=== PATIENT | female | born 1995 | race Caucasian/White ===

== ENCOUNTER → 2016-12-05 | Day surgery (SDC) | payer SELFPAY ==
[~2016-12-05] MED LIST: Albuterol/Ipratropium 3.0-0.5 MG/3 ML Neb Soln NEB ONE; Dexamethasone 4 MG/ML SDV ONE; Famotidine 20 MG/2 ML SDV IVPUSH ONE; Glycopyrrolate 0.2 MG/ML SDV ONE; HYDROmorphone 0.5 MG/0.5 ML Syringe IVPUSH PRN; HYDROmorphone 1 MG/ML Syringe ONE; Haloperidol Lactate 5 MG/ML SDV IVPUSH ONE; Hetastarch in NS 500 ML ONE; Lactated Ringers 1,000 ML ONE; Lidocaine 1% 4 ML ONE; Metoclopramide 10 MG/2 ML SDV IVPUSH PRN; Midazolam 1 MG/ML 2 ML SDV ONE; Neostigmine Methylsulfate 10 MG/10 ML MDV ONE; Ondansetron 4 MG/2 ML SDV IVPUSH ONE; Ondansetron 4 MG/2 ML SDV ONE; Phenylephrine 1% 10 MG/ML SDV ONE; Propofol 200 MG/20 ML SDV ONE; Rocuronium 50 MG/5 ML Vial ONE; Sodium Chloride 0.9% 1,000 ML IV ONE; Sodium Chloride 0.9% 1,000 ML IV SCH; Sodium Chloride 0.9% 10 ML Syringe FLUSH PRN; Succinylcholine/Normal Saline 100 MG/5 ML Syringe ONE; diphenhydrAMINE 50 MG/ML SDV IVPUSH ONE; ePHEDrine 50 MG/ML SDV IVPUSH PRN; ePHEDrine 50 MG/ML SDV ONE; fentaNYL 100 MCG/2 ML SDV IVPUSH PRN; fentaNYL 250 MCG/5 ML SDV ONE
--- NOTE | 2016-12-05 13:06 | EDM.PDOC ---
ED HPI GENERAL MEDICAL PROBLEM - General Chief Complaint: WHEEL ASSEMBLER Problem Stated Complaint: TUBAL HERE FOR 2ND OPINION Time Seen by Provider: 12/05/16 12:40 Source of Information: Reports: Patient History Limitations: Reports: No Limitations - History of Present Illness INITIAL COMMENTS - FREE TEXT/NARRATIVE: 21-year-old female presents to the ER for a second opinion and possible ectopic . Patient was seen in the [facility] on 11-22-16 for vaginal bleeding and lower pelvic pain. She was diagnosed with an ectopic . She had an hCG of 759 at that time. She was admitted for observation and treated with methotrexate. She went home the next day. She was supposed to follow up with OB but due to financial concerns is unable to do so. She then presented to the [facility] again last night for pelvic pain, vaginal bleeding, lightheadedness , nausea and malaise. An ultrasound was again done which showed "a left adnexal masslike lesion consistent with the patient's known ectopic which has increased in size compared to 11-22-16. Complex fluid in the pelvis the left adnexa may represent blood products." Patient reports that she was again admitted for observation with a plan for surgery this morning. She states that while she was awaiting surgery her WHEEL ASSEMBLER provider came in and told her that it was a blood clot and she did not need surgery. She was told that she could go home. Review the records from [place] do not show any admission documentation. Last documentation was from the ER last night. Of note her Quant had dropped to 201 last night. Patient presents today for second opinion on the ectopic . She reports that she continues to have lower pelvic pain. Currently she is has a headache, lightheadedness, shakiness, nausea and vaginal bleeding. She reports vaginal bleeding in the form of spotting and states that she is change her pad about 3 times today. She denies any vomiting or syncope. Denies any dysuria. Patient is a . Blood type is A+. Treatments BODY AND FENDER WORKER: Reports: Other (see below) Other Treatments BODY AND FENDER WORKER: was seen in [facility] right lower abdomen Pain Score (Numeric/FACES): 5 - Related Data Allergies Allergy/AdvReac Type Severity Reaction Status Date / Time Penicillins Allergy Cannot Verified 12/05/16 12:18 Remember Home Meds: Home Meds . [No Known Home Meds] 11/22/16 [History] Past Medical History - Past Health History Medical/Surgical History: Denies Medical/Surgical History HEENT History: Reports: None Cardiovascular History: Reports: None Respiratory History: Reports: None Gastrointestinal History: Reports: Irritable Bowel Syndrome Genitourinary History: Reports: Other (See Below) Other Genitourinary History: Hx of miscarriage 3x WHEEL ASSEMBLER History: Reports: Ectopic , Other (See Below) Other OB/BYN History: miscarriage x3 Musculoskeletal History: Reports: None Neurological History: Reports: None Psychiatric History: Reports: Other (See Below) Other Psychiatric History: depression Endocrine/Metabolic History: Reports: None Hematologic History: Reports: None Immunologic History: Reports: None Oncologic (Cancer) History: Reports: Other (See Below) Other Oncologic History: Skin Dermatologic History: Reports: Other (See Below) Other Dermatologic History: skin CA - Infectious Disease History Infectious Disease History: Reports: None - Past Surgical History Head Surgeries/Procedures: Reports: None Cardiovascular Surgical History: Reports: None GI Surgical History: Reports: None Female Surgical History: Reports: None, Other (See Below) Other Female Surgeries/Procedures: possible current tubal , irregular periods Social & Family History - Family History Family Medical History: Noncontributory - Tobacco Use Smoking Status *Q: Never Smoker Second Hand Smoke Exposure: No - Caffeine Use Caffeine Use: Reports: Soda Caffeine Use Comment: 5 sodas/day - Recreational Drug Use Recreational Drug Use: No ED ROS GENERAL - Review of Systems Review Of Systems: See Below Constitutional: Reports: Malaise, Diaphoresis Cardiovascular: Reports: Lightheadedness GI/Abdominal: Reports: Abdominal Pain (lower abdominal/ pelvic pain bilaterally) , Nausea. Denies: Constipation, Diarrhea, Vomiting : Reports: Other. Denies: Dysuria Neurological: Reports: Headache. Denies: Syncope ED EXAM - Physical Exam Exam: See Below Exam Limited By: No Limitations General Appearance: Alert, WD/WN, No Apparent Distress Respiratory/Chest: No Respiratory Distress, Lungs Clear, Normal Breath Sounds Cardiovascular: Normal Peripheral Pulses, Regular Rate, Rhythm, No Murmur GI/Abdominal Exam: Normal Bowel Sounds, Soft, Tender (lower abdominal pain bilateral) Neurological: Alert, Oriented, Normal Cognition Psychiatric: Normal Affect, Normal Mood Skin Exam: Warm, Dry, Normal Color Course - Vital Signs Last Recorded V/S: Last Vital Signs Temp 36.3 C 12/05/16 12:10 Pulse 88 12/05/16 12:10 Resp 18 12/05/16 12:10 BP 125/75 12/05/16 12:10 Pulse Ox 98 12/05/16 12:10 - Orders/Labs/Meds Orders: Active Orders 24 hr Category Date Time Status Patient Status [ADT] Routine ADT 12/05/16 15:57 Active Antiembolic Devices [RC] PER UNIT ROUTINE Care 12/05/16 14:56 Active Cardiac Monitoring [RC] . DIRECTED Care 12/05/16 12:49 Active Peripheral IV Care [RC] . DIRECTED Care 12/05/16 12:49 Active Procedure Site Prep Instruct [RC] PER UNIT ROUTINE Care 12/05/16 17:00 Inactive Urinary Catheter Assessment [RC] ASDIRECTED Care 12/05/16 14:54 Inactive Verify Patient Consent Obtain [RC] PER UNIT ROUTINE Care 12/05/16 14:55 Inactive Vital Signs [RC] PER UNIT ROUTINE Care 12/05/16 14:55 Inactive NPO Now [Nothing per Oral Now Diet] [DIET] Diet 12/05/16 Dinner Active PATIENT RETYPE [BBK] Urgent Lab 12/05/16 12:59 Results TYPE AND SCREEN [BBK] Urgent Lab 12/05/16 12:59 Results Metoclopramide [Reglan] Med 12/05/16 16:23 Active 10 mg IVPUSH ONETIME PRN Sodium Chloride 0.9% [Normal Saline] 1,000 ml Med 12/05/16 14:45 Active IV ASDIRECTED Sodium Chloride 0.9% [Saline Flush] Med 12/05/16 12:49 Active 10 ml FLUSH ASDIRECTED PRN Peripheral IV Insertion Adult [OM.PC] Routine Oth 12/05/16 12:49 Ordered Schedule Procedure [COMM] Urgent Oth 12/05/16 17:00 Ordered Sequential Compression Device [OM.PC] Per Unit Routine Oth 12/05/16 14:56 Ordered Medication Orders Sodium Chloride (Normal Saline) 1,000 mls @ 150 mls/hr IV ASDIRECTED JUAN Last Admin: 12/05/16 14:42 Dose: 150 mls/hr Metoclopramide HCl (Reglan) 10 mg IVPUSH ONETIME PRN PRN Reason: Nausea/Vomiting Sodium Chloride (Saline Flush) 10 ml FLUSH ASDIRECTED PRN PRN Reason: Keep Vein Open Last Admin: 12/05/16 13:05 Dose: 10 ml Labs: Laboratory Tests 12/05/16 12/05/16 12/05/16 Range/Units 12:55 12:59 12:59 WBC 13.68 H (3.98-10.04) K/mm3 RBC 4.29 (3.98-5.22) M/mm3 Hgb 12.6 (11.2-15.7) gm/L Hct 38.1 (34.1-44.9) % MCV 88.8 (79.4-94.8) fl MCH 29.4 (25.6-32.2) pg MCHC 33.1 (32.2-35.5) g/dl RDW Std Deviation 42.6 (36.4-46.3) fL Plt Count 309 (182-369) K/mm3 MPV 9.8 (9.4-12.3) fl Neutrophils % (Manual) 85 H (40-60) % Band Neutrophils % 0 (0-10) % Lymphocytes % (Manual) 10 L (20-40) % Atypical Lymphs % 0 % Monocytes % (Manual) 5 (2-10) % Eosinophils % (Manual) 0 L (0.7-5.8) % Basophils % (Manual) 0 L (0.1-1.2) Platelet Estimate Adequate Plt Morphology Comment Normal RBC Morph Comment Normal Sodium 139 (136-145) mEq/L Potassium 3.9 (3.5-5.1) mEq/L Chloride 103 (98-107) mEq/L Carbon Dioxide 26 (21-32) mEq/L Anion Gap 13.9 (5-15) BUN 6 L (7-18) mg/dL Creatinine 0.8 (0.55-1.02) mg/dL Est Cr Clr Drug Dosing TNP Estimated GFR (MDRD) > 60 (>60) mL/min BUN/Creatinine Ratio 7.5 L (14-18) Glucose 123 H (74-106) mg/dL Calcium 9.4 (8.5-10.1) mg/dL Total Bilirubin 0.4 (0.2-1.0) mg/dL AST 15 (15-37) U/L ALT 25 (14-59) U/L Alkaline Phosphatase 111 (46-116) U/L Total Protein 8.4 H (6.4-8.2) g/dl Albumin 3.8 (3.4-5.0) g/dl Globulin 4.6 gm/dL Albumin/Globulin Ratio 0.8 L (1-2) HCG, Quant 87.0 mIU/mL Urine Color Yellow (Yellow) Urine Appearance Clear (Clear) Urine pH 7.0 (5.0-8.0) Ur Specific [place] 1.020 (1.005-1.030) Urine Protein Trace H (Negative) Urine Glucose (UA) Negative (Negative) Urine Ketones Negative (Negative) Urine Occult Blood 3+ H (Negative) Urine Nitrite Negative (Negative) Urine Bilirubin Negative (Negative) Urine Urobilinogen 1.0 (0.2-1.0) Ur Leukocyte Esterase Negative (Negative) Urine RBC 5-10 H (0-5) /hpf Urine WBC 0-5 (0-5) /hpf Ur Epithelial Cells 10-20 H (0-5) /hpf Urine Bacteria Moderate H (FEW) /hpf Urine Mucus Few (FEW) /hpf Blood Type Gel Antibody Screen 12/05/16 Range/Units 12:59 WBC (3.98-10.04) K/mm3 RBC (3.98-5.22) M/mm3 Hgb (11.2-15.7) gm/L Hct (34.1-44.9) % MCV (79.4-94.8) fl MCH (25.6-32.2) pg MCHC (32.2-35.5) g/dl RDW Std Deviation (36.4-46.3) fL Plt Count (182-369) K/mm3 MPV (9.4-12.3) fl Neutrophils % (Manual) (40-60) % Band Neutrophils % (0-10) % Lymphocytes % (Manual) (20-40) % Atypical Lymphs % % Monocytes % (Manual) (2-10) % Eosinophils % (Manual) (0.7-5.8) % Basophils % (Manual) (0.1-1.2) Platelet Estimate Plt Morphology Comment RBC Morph Comment Sodium (136-145) mEq/L Potassium (3.5-5.1) mEq/L Chloride (98-107) mEq/L Carbon Dioxide (21-32) mEq/L Anion Gap (5-15) BUN (7-18) mg/dL Creatinine (0.55-1.02) mg/dL Est Cr Clr Drug Dosing Estimated GFR (MDRD) (>60) mL/min BUN/Creatinine Ratio (14-18) Glucose (74-106) mg/dL Calcium (8.5-10.1) mg/dL Total Bilirubin (0.2-1.0) mg/dL AST (15-37) U/L ALT (14-59) U/L Alkaline Phosphatase (46-116) U/L Total Protein (6.4-8.2) g/dl Albumin (3.4-5.0) g/dl Globulin gm/dL Albumin/Globulin Ratio (1-2) HCG, Quant mIU/mL Urine Color (Yellow) Urine Appearance (Clear) Urine pH (5.0-8.0) Ur Specific [place] (1.005-1.030) Urine Protein (Negative) Urine Glucose (UA) (Negative) Urine Ketones (Negative) Urine Occult Blood (Negative) Urine Nitrite (Negative) Urine Bilirubin (Negative) Urine Urobilinogen (0.2-1.0) Ur Leukocyte Esterase (Negative) Urine RBC (0-5) /hpf Urine WBC (0-5) /hpf Ur Epithelial Cells (0-5) /hpf Urine Bacteria (FEW) /hpf Urine Mucus (FEW) /hpf Blood Type A POSITIVE Gel Antibody Screen Negative Meds: Medications Generic Name Dose Route Start Last Admin Trade Name Freq PRN Reason Stop Dose Admin Sodium Chloride 1,000 mls @ 150 mls/hr 12/05/16 14:45 12/05/16 14:42 Normal Saline IV 150 mls/hr ASDIRECTED JUAN Administration Metoclopramide HCl 10 mg 12/05/16 16:23 Reglan IVPUSH ONETIME PRN Nausea/Vomiting Sodium Chloride 10 ml 12/05/16 12:49 12/05/16 13:05 Saline Flush FLUSH 10 ml ASDIRECTED PRN Administration Keep Vein Open Discontinued Medications Generic Name Dose Route Start Last Admin Trade Name Freq PRN Reason Stop Dose Admin Bupivacaine HCl Confirm 12/05/16 15:54 Marcaine 0.5% Administered 12/05/16 15:55 Dose 30 ml .ROUTE .STK-MED ONE Dexamethasone Confirm 12/05/16 16:34 Dexamethasone Administered 12/05/16 16:35 Dose 8 mg .ROUTE .STK-MED ONE Diphenhydramine HCl 25 mg 12/05/16 12:49 12/05/16 13:08 Benadryl IVPUSH 12/05/16 12:50 25 mg ONETIME ONE Administration Famotidine 20 mg 12/05/16 16:24 Pepcid IVPUSH 12/05/16 16:25 ONETIME ONE Fentanyl Confirm 12/05/16 16:35 Sublimaze Administered 12/05/16 16:36 Dose 250 mcg .ROUTE .STK-MED ONE Sodium Chloride 1,000 mls @ 999 mls/hr 12/05/16 12:49 12/05/16 13:00 Normal Saline IV 12/05/16 13:49 999 mls/hr ONETIME ONE Administration Lidocaine HCl Confirm 12/05/16 16:34 Xylocaine-Mpf 1% Administered 12/05/16 16:35 Dose 4 mls @ as directed .ROUTE .STK-MED ONE Midazolam HCl Confirm 12/05/16 16:35 Versed 1 Mg/Ml Administered 12/05/16 16:36 Dose 2 mg .ROUTE .STK-MED ONE Ondansetron HCl 4 mg 12/05/16 12:49 12/05/16 13:03 Zofran IVPUSH 12/05/16 12:50 4 mg ONETIME ONE Administration Ondansetron HCl Confirm 12/05/16 16:34 Zofran Administered 12/05/16 16:35 Dose 4 mg .ROUTE .STK-MED ONE Propofol Confirm 12/05/16 16:35 Diprivan 20 Ml Administered 12/05/16 16:36 Dose 400 mg .ROUTE .STK-MED ONE Rocuronium Cochrane Confirm 12/05/16 16:34 Zemuron Administered 12/05/16 16:35 Dose 50 mg .ROUTE .STK-MED ONE Succinylcholine Chloride Confirm 12/05/16 16:34 Succinylcholine In Ns Pf Administered 12/05/16 16:35 Dose 100 mg .ROUTE .STK-MED ONE - Re-Assessments/Exams Free Text/Narrative Re-Assessment/Exam: 12/05/16 13:00 Case discussed with , OB simulation developer. He will discuss this case with his partners. He will likely come and see the patient in the ER. They may plan on surgery tomorrow. 12/05/16 14:50 Dr. Woodall, OB has come and seen the patient in the ER. Plan will be to take her to the OR for a laparoscopy with a possible salpingostomy. Plan to go to the OR around 1600 today. Departure - Departure Time of Disposition: 16:45 Disposition: Refer to Observation Condition: Fair Clinical Impression: Ectopic - Discharge Information - My Orders Last 24 Hours: My Active Orders 12/05/16 12:49 Cardiac Monitoring [RC] . DIRECTED Peripheral IV Care [RC] . DIRECTED Sodium Chloride 0.9% [Saline Flush] 10 ml FLUSH ASDIRECTED PRN Peripheral IV Insertion Adult [OM.PC] Routine 12/05/16 14:45 Sodium Chloride 0.9% [Normal Saline] 1,000 ml IV ASDIRECTED 12/05/16 Dinner NPO Now [Nothing per Oral Now Diet] [DIET] - Assessment/Plan Last 24 Hours: My Active Orders 12/05/16 12:49 Cardiac Monitoring [RC] . DIRECTED Peripheral IV Care [RC] . DIRECTED Sodium Chloride 0.9% [Saline Flush] 10 ml FLUSH ASDIRECTED PRN Peripheral IV Insertion Adult [OM.PC] Routine 12/05/16 14:45 Sodium Chloride 0.9% [Normal Saline] 1,000 ml IV ASDIRECTED 12/05/16 Dinner NPO Now [Nothing per Oral Now Diet] [DIET]
--- NOTE | 2016-12-05 15:23 | PCM.SN ---
- Free Text/Narrative Note: H&P Chief complaint: Ectopic with possible rupture HPI: Reva is a 21-year-old female at unknown gestational age with known ectopic . Patient was seen in the emergency department in [place] on 11/22/16 and found to have a suspected ectopic with hCG Quant of 700. She was treated with methotrexate at that time. She had presented for abdominal pain and had an ultrasound that showed a right-sided adnexal mass. She re-presented to the [place] emergency department last night on 12/05/16 for increasing abdominal pain and vaginal bleeding. She had an ultrasound done that again showed an adnexal mass but on the left side this time and had increased in size since the previous ultrasound. There was also noted to be free fluid in the cul-de-sac. Her hCG Quant had dropped to 200. She reports that she was scheduled to have surgery this morning but for an unknown reason the surgery was canceled. The patient then traveled to [place] and presented to the emergency department here for a second opinion. She reports that she has continued to have abdominal pain that has ranged from 5 out of 10 currently up to 9 or 10 out of 10. She reports it is in her lower abdomen more on the left side. Describes the pain as a burning sensation. Reports that she has had some chills and fevers. Denies any nausea or vomiting. Reports that she had a near syncopal event when she had her IV placed in [place]. She has not had any near syncopal events since that time. She has been urinating without difficulty. Denies any problems with having bowel movements. She is uncertain of her last menstrual cycle as she reports her LMP as some time in December 2015. She has only had several menstrual cycle since delivery of her son in 2014. She reports that she has had increased vaginal bleeding today that is slightly heavier than a normal menstrual cycle for her. She reports that there is small dark red clots with the bleeding. Past medical history: Reports irritable bowel syndrome, history of recurrent 3, history of skin cancer on her chest, known ectopic currently Past medical history: Skin cancer excision from chest with no further workup needed OB history: , 1 in 2014, uncomplicated , first 3 pregnancies ended as early miscarriages PATTERN DRAFTER history: Unsure of LMP with last known LMP in December 2015, oligomenorrhea with only 2 or 3 menstrual cycles since the delivery of her son in 2015 Social history: Denies any significant alcohol use, denies tobacco or drug use. Review of systems: As per history of present illness Objective T 36.3 Celsius, P 88, RR 18, BP 125/75 Gen.: No acute distress, alert and oriented Lungs: Clear to auscultation bilaterally Heart: Regular rate and rhythm Abdomen: soft, mild tenderness in left lower quadrant and suprapubic area, no guarding or rebound, nondistended, positive bowel sounds in all 4 quadrants Extremities: Moving all external is without difficulty, no edema appreciated Transvaginal ultrasound performed at [facility] (12/05/16) Findings: Uterus: 9.3 x 4.7 x 5.4 cm. Normal echotexture of the myometrium. No masses Endometrium: No sign of an endometrial mass or fluid Right ovary: 0.5 x 2.2 x 2.9 cm. No ovarian or adnexal masses stable complex cyst of the right ovary. Normal arterial and venous blood flow. Left ovary: 4.1 x 2.8 x 3.1 second meters. Complex left adnexa consistent with patient with known ectopic , increase in side compared to 11/22/16. Normal arterial and venous blood flow. Cul-de-sac: Complex fluid in the cul-de-sac and left adnexa may represent blood products. Impression: Left adnexal mass like lesion consistent with patient's known ectopic which has increased in size compared to 11/22/16. Complex fluid in the pelvis of the left adnexa may represent blood products. CBC: WBC 13.7, hemoglobin 12.6, hematocrit 38.1, platelets 309 CMP: Sodium 139, potassium 3.9, chloride 103, CO2 26, BUS and 6, creatinine 0.8 , glucose 123, AST 15, ALT 25, alkaline phosphatase 111 HC Blood type: A positive Antibody screen negative Assessment/plan: 21-year-old G [id number] at unknown gestational age with a known ectopic , possible rupture based on free fluid in the pelvis 1. Ectopic - patient was counseled on her options including well continued watchful waiting, methotrexate or surgical management. Patient desires surgical management. She last ate at approximately 11:00. Case was discussed with the TECHNICAL AGRONOMIST who desired to wait 6 hours if possible before performing surgery. The patient is currently an urgent surgical case but could quickly turned to an emergent case and the OR is aware of this. Patient is scheduled for laparoscopy with possible salpingectomy of affected side. Discussed risks and benefits of surgery including bleeding, infection, injury to surrounding organs, and decreased fertility in the future. 2. Nothing by mouth 3. IV fluids at 125 mL/h 4. Type and screen for possible blood product need with possible ectopic rupture neckline 5. Plan to keep patient for observation overnight as she lives in [place] Casey Woodall MD 3:23 PM 12/05/16
[2016-12-05] MEDS: Bupivacaine 0.5% 30 ML SDV ONE ×2 (17:24→17:31)
--- NOTE | 2016-12-05 18:00 | PCM.PREANE ---
Preanesthetic Assessment - Anesthesia/Transfusion/Family Hx Anesthesia History: Prior Anesthesia Without Reaction Family History of Anesthesia Reaction: No Transfusion History: No Prior Transfusion(s) Intubation History: Unknown - Review of Systems General: No Symptoms Pulmonary: No Symptoms Cardiovascular: No Symptoms Gastrointestinal: Abdominal Pain Neurological: No Symptoms Other: Reports: None - Physical Assessment NPO Status Date: 12/05/16 NPO Status Time: 11:30 O2 Sat by Pulse Oximetry: 98 Respiratory Rate: 18 Vital Signs: Last Vital Signs Temp 36.3 C 12/05/16 12:10 Pulse 88 12/05/16 12:10 Resp 18 12/05/16 12:10 BP 125/75 12/05/16 12:10 Pulse Ox 98 12/05/16 12:10 Height: 1.52 m Weight: 71.441 kg ASA Class: 1 Mental Status: Alert & Oriented x3 Dentition: Reports: Normal Dentition (Permanent retainer that is broken. ) Thyro-Mental Finger Breadths: 2 Mouth Opening Finger Breadths: 3 ROM/Head Extension: Full Lungs: Clear to Auscultation, Normal Respiratory Effort, Other Cardiovascular: Regular Rate, Regular Rhythm - Lab Values: Laboratory Last Values WBC 13.68 K/mm3 (3.98-10.04) H 12/05/16 12:59 RBC 4.29 M/mm3 (3.98-5.22) 12/05/16 12:59 Hgb 12.6 gm/L (11.2-15.7) 12/05/16 12:59 Hct 38.1 % (34.1-44.9) 12/05/16 12:59 MCV 88.8 fl (79.4-94.8) 12/05/16 12:59 MCH 29.4 pg (25.6-32.2) 12/05/16 12:59 MCHC 33.1 g/dl (32.2-35.5) 12/05/16 12:59 RDW Std Deviation 42.6 fL (36.4-46.3) 12/05/16 12:59 Plt Count 309 K/mm3 (182-369) 12/05/16 12:59 MPV 9.8 fl (9.4-12.3) 12/05/16 12:59 Neutrophils % (Manual) 85 % (40-60) H 12/05/16 12:59 Band Neutrophils % 0 % (0-10) 12/05/16 12:59 Lymphocytes % (Manual) 10 % (20-40) L 12/05/16 12:59 Atypical Lymphs % 0 % 12/05/16 12:59 Monocytes % (Manual) 5 % (2-10) 12/05/16 12:59 Eosinophils % (Manual) 0 % (0.7-5.8) L 12/05/16 12:59 Basophils % (Manual) 0 (0.1-1.2) L 12/05/16 12:59 Platelet Estimate Adequate 12/05/16 12:59 Plt Morphology Comment Normal 12/05/16 12:59 RBC Morph Comment Normal 12/05/16 12:59 Sodium 139 mEq/L (136-145) 12/05/16 12:59 Potassium 3.9 mEq/L (3.5-5.1) 12/05/16 12:59 Chloride 103 mEq/L (98-107) 12/05/16 12:59 Carbon Dioxide 26 mEq/L (21-32) 12/05/16 12:59 Anion Gap 13.9 (5-15) 12/05/16 12:59 BUN 6 mg/dL (7-18) L 12/05/16 12:59 Creatinine 0.8 mg/dL (0.55-1.02) 12/05/16 12:59 Est Cr Clr Drug Dosing TNP 12/05/16 12:59 Estimated GFR (MDRD) > 60 mL/min (>60) 12/05/16 12:59 BUN/Creatinine Ratio 7.5 (14-18) L 12/05/16 12:59 Glucose 123 mg/dL (74-106) H 12/05/16 12:59 Calcium 9.4 mg/dL (8.5-10.1) 12/05/16 12:59 Total Bilirubin 0.4 mg/dL (0.2-1.0) 12/05/16 12:59 AST 15 U/L (15-37) 12/05/16 12:59 ALT 25 U/L (14-59) 12/05/16 12:59 Alkaline Phosphatase 111 U/L (46-116) 12/05/16 12:59 Total Protein 8.4 g/dl (6.4-8.2) H 12/05/16 12:59 Albumin 3.8 g/dl (3.4-5.0) 12/05/16 12:59 Globulin 4.6 gm/dL 12/05/16 12:59 Albumin/Globulin Ratio 0.8 (1-2) L 12/05/16 12:59 HCG, Quant 87.0 mIU/mL 12/05/16 12:59 Urine Color Yellow (Yellow) 12/05/16 12:55 Urine Appearance Clear (Clear) 12/05/16 12:55 Urine pH 7.0 (5.0-8.0) 12/05/16 12:55 Ur Specific [place] 1.020 (1.005-1.030) 12/05/16 12:55 Urine Protein Trace (Negative) H 12/05/16 12:55 Urine Glucose (UA) Negative (Negative) 12/05/16 12:55 Urine Ketones Negative (Negative) 12/05/16 12:55 Urine Occult Blood 3+ (Negative) H 12/05/16 12:55 Urine Nitrite Negative (Negative) 12/05/16 12:55 Urine Bilirubin Negative (Negative) 12/05/16 12:55 Urine Urobilinogen 1.0 (0.2-1.0) 12/05/16 12:55 Ur Leukocyte Esterase Negative (Negative) 12/05/16 12:55 Urine RBC 5-10 /hpf (0-5) H 12/05/16 12:55 Urine WBC 0-5 /hpf (0-5) 12/05/16 12:55 Ur Epithelial Cells 10-20 /hpf (0-5) H 12/05/16 12:55 Urine Bacteria Moderate /hpf (FEW) H 12/05/16 12:55 Urine Mucus Few /hpf (FEW) 12/05/16 12:55 Blood Type A POSITIVE 12/05/16 12:59 Gel Antibody Screen Negative 12/05/16 12:59 - Allergies Allergies/Adverse Reactions: Allergies Allergy/AdvReac Type Severity Reaction Status Date / Time Penicillins Allergy Cannot Verified 12/05/16 12:18 Remember - Acknowledgements Anesthesia Type Planned: General Anesthesia Pt an Appropriate Candidate for the Planned Anesthesia: Yes Alternatives and Risks of Anesthesia Discussed w Pt/Guardian: Yes Pt/Guardian Understands and Agrees with Anesthesia Plan: Yes PreAnesthesia Questionnaire - Past Health History Medical/Surgical History: Denies Medical/Surgical History HEENT History: Reports: None Cardiovascular History: Reports: None Respiratory History: Reports: None Gastrointestinal History: Reports: Irritable Bowel Syndrome Genitourinary History: Reports: Other (See Below) Other Genitourinary History: Hx of miscarriage 3x [employer] History: Reports: Ectopic , Other (See Below) Other OB/BYN History: miscarriage x3 Musculoskeletal History: Reports: None Neurological History: Reports: None Psychiatric History: Reports: Other (See Below) Other Psychiatric History: depression Endocrine/Metabolic History: Reports: None Hematologic History: Reports: None Immunologic History: Reports: None Oncologic (Cancer) History: Reports: Other (See Below) Other Oncologic History: Skin Dermatologic History: Reports: Other (See Below) Other Dermatologic History: skin CA - Infectious Disease History Infectious Disease History: Reports: None - Past Surgical History Head Surgeries/Procedures: Reports: None Cardiovascular Surgical History: Reports: None GI Surgical History: Reports: None Female Surgical History: Reports: None, Other (See Below) Other Female Surgeries/Procedures: possible current tubal , irregular periods - SUBSTANCE USE Smoking Status *Q: Never Smoker Tobacco Use Within Last Twelve Months: No Second Hand Smoke Exposure: No Recreational Drug Use History: No - HOME MEDS Home Medications: Home Meds . [No Known Home Meds] 11/22/16 [History] - CURRENT (IN HOUSE) MEDS Current Meds: Current Medications Sodium Chloride (Normal Saline) 1,000 mls @ 150 mls/hr IV ASDIRECTED JUAN Last Admin: 12/05/16 14:42 Dose: 150 mls/hr Metoclopramide HCl (Reglan) 10 mg IVPUSH ONETIME PRN PRN Reason: Nausea/Vomiting Last Admin: 12/05/16 16:50 Dose: 10 mg Sodium Chloride (Saline Flush) 10 ml FLUSH ASDIRECTED PRN PRN Reason: Keep Vein Open Last Admin: 12/05/16 13:05 Dose: 10 ml Discontinued Medications Bupivacaine HCl (Marcaine 0.5%) Confirm Administered Dose 30 ml .ROUTE .STK-MED ONE Stop: 12/05/16 15:55 Dexamethasone (Dexamethasone) Confirm Administered Dose 8 mg .ROUTE .STK-MED ONE Stop: 12/05/16 16:35 Diphenhydramine HCl (Benadryl) 25 mg IVPUSH ONETIME ONE Stop: 12/05/16 12:50 Last Admin: 12/05/16 13:08 Dose: 25 mg Famotidine (Pepcid) 20 mg IVPUSH ONETIME ONE Stop: 12/05/16 16:25 Last Admin: 12/05/16 16:44 Dose: 20 mg Fentanyl (Sublimaze) Confirm Administered Dose 250 mcg .ROUTE .STK-MED ONE Stop: 12/05/16 16:36 Sodium Chloride (Normal Saline) 1,000 mls @ 999 mls/hr IV ONETIME ONE Stop: 12/05/16 13:49 Last Admin: 12/05/16 13:00 Dose: 999 mls/hr Lidocaine HCl (Xylocaine-Mpf 1%) Confirm Administered Dose 4 mls @ as directed .ROUTE .STK-MED ONE Stop: 12/05/16 16:35 Midazolam HCl (Versed 1 Mg/Ml) Confirm Administered Dose 2 mg .ROUTE .STK-MED ONE Stop: 12/05/16 16:36 Ondansetron HCl (Zofran) 4 mg IVPUSH ONETIME ONE Stop: 12/05/16 12:50 Last Admin: 12/05/16 13:03 Dose: 4 mg Ondansetron HCl (Zofran) Confirm Administered Dose 4 mg .ROUTE .STK-MED ONE Stop: 12/05/16 16:35 Propofol (Diprivan 20 Ml) Confirm Administered Dose 400 mg .ROUTE .STK-MED ONE Stop: 12/05/16 16:36 Rocuronium [place] (Zemuron) Confirm Administered Dose 50 mg .ROUTE .STK-MED ONE Stop: 12/05/16 16:35 Succinylcholine Chloride (Succinylcholine In Ns Pf) Confirm Administered Dose 100 mg .ROUTE .STK-MED ONE Stop: 12/05/16 16:35
--- NOTE | 2016-12-05 18:40 | PCM.OPNOTE ---
- General Post-Op/Procedure Note Date of Surgery/Procedure: 12/05/16 Operative Procedure(s): Laparoscopy with left salpingectomy Findings: Approximately 200 cc of blood and clot in the cul de sac. Normal appearing right tube and ovary. Left ovary normal in appearance. Left tube and large with suspected ectopic and distal third of the tube. Left tube was removed without difficulty. Pre Op Diagnosis: Suspected ruptured ectopic Post-Op Diagnosis: Ruptured ectopic of the left fallopian tube status post left salpingectomy Anesthesia Technique: General ET Tube Primary Surgeon: Casey Woodall Secondary Surgeon: Jose Duckworth Anesthesia Provider: Sujatha Sosa Pathology: Left tube with products of conception Fluid Replacement, Intraop: 3,400 (500 mL of hetastarch, 2900 mL of normal saline) Output, Urine Amount: 200 EBL in mLs: 200 (Minimal blood loss from surgery, 200 mL of blood in the cul-de- sac) Complications: Hypotension during the case Condition: Good Free Text/Narrative:: Procedure in detail: The patient was evaluated in the emergency room for possible ruptured ectopic . Review of her ultrasound findings and the positive metal tester to suspicion for ectopic with possible rupture based on free fluid seen on ultrasound. Patient was overall stable at time of exam and was scheduled for an urgent case for a diagnostic laparoscopy with possible salpingectomy. Patient was counseled on the risks benefits alternatives of the procedure and the patient desired to proceed with the diagnostic laparoscopy and possible salpingectomy. Consents were signed. The patient was taken back to operating room #3. She was transferred over to the OR table and given general anesthesia with an endotracheal tube was placed without difficulty. She was placed in dorsal lithotomy position using yellowfin stirrups. She had a Ahn catheter placed without difficulty. She was prepped and draped in a normal sterile fashion. A short weighted speculum was placed into the vagina and a retractor was used to visualize the cervix. The anterior lip of the cervix was grasped with single-tooth tenaculum. The cervix was then dilated using a dilator. A uterine manipulator was placed without difficulty. Attention was then turned to the abdomen. The inferior umbilicus was injected with 0.5% Marcaine and a stab incision with a scalpel was made. Veress needle was inserted through the incision and insufflation was started with an opening pressure of 8 mmHg. Pneumoperitoneum was inflated to 15 mmHg. A 5 mm umbilical trocar was placed and entered into the pneumoperitoneum. Camera was inserted and noted to be moderate amount of bleeding within the lower pelvis. Total amount of blood within the pelvis was approximately 200 mL of blood. Attention was then turned to the suprapubic port where 0.5% Marcaine was injected approximately 2 fingerbreadths above the pubic symphysis. A 5 mm incision was made and a trocar was placed under direct visual guidance. Attention was then turned to the right lower quadrant where approximately 2 cm toward the umbilicus from the ASIS was injected with 0.5% Marcaine. A 5 mm incision was made and a 5 mm trocar was inserted under direct visual guidance. Inspection was then performed there is no evidence of injury to bowel or surrounding structures. The pelvis was then explored with use of a grasper and the uterine manipulator and there was noted to be a mass in the distal portion of the left fallopian tube with blood and clot coming from the fimbriated portion of the fallopian tube. The ovary overall looked normal on the left side. The distal end of the fallopian tube was then grasped with a uterine grasper and an Enseal ligation device was used to clamp, cauterize and cut along the broad ligament towards the uterus. The left fallopian tube was then transected from the uterus approximately 0.5 cm from the uterus. These transected portions were inspected and noted be hemostatic. Due to the size of the ectopic it was necessary to place a 10 mm trocar and the suprapubic port site. An Endo Catch bag was then used to remove the fallopian tube and products of conception. The remainder of the pelvis was explored and the uterus overall looks normal. The right tube and ovary looked normal. There was approximately 75 mL of dark red clots in the posterior cul-de-sac and this was suctioned out using a suction hspt tutor. The case was completed at this time. The 10 mm trocar was removed and the fascia was closed with a running suture of 0 Vicryl on a UR 6 needle. The pneumoperitoneum was released and the remaining trochars were removed. The skin edges of the incision sites were reapproximated with interrupted sutures of 4-0 Monocryl. Dermabond was placed over the incisions. Throughout the case it was noted that the patient had episodes of hypotension that required several fluid boluses. She was also given a dose of epinephrine prior to the end of the case to help with her hypotension. The patient was awoken and the endotracheal tube was removed without difficulty. Patient was taken back to the PACU and will be monitored for possible discharge from the PACU. A CBC was drawn to check her hemoglobin once she was in the PACU. Casey Woodall M.D. 7:00 PM 12/05/16
--- NOTE | 2016-12-05 18:41 | PCM.POSTAN ---
POST ANESTHESIA ASSESSMENT - MENTAL STATUS Mental Status: Alert - VITAL SIGNS Pulse Rate: 106 SaO2: 93 Resp Rate: 16 Blood Pressure: 114/51 Temperature: 36.7 C - RESPIRATORY Respiratory Status: Respiratory Rate WNL, Airway Patent, O2 Saturation Stable - CARDIOVASCULAR CV Status: Pulse Rate WNL, Blood Pressure Stable - GASTROINTESTINAL GI Status: No Symptoms - PAIN Pain Score: 0 - POST OP HYDRATION Hydration Status: Adequate & Stable (CBC Pending)
--- NOTE | 2016-12-05 19:39 | PCM.DCSUM1 ---
Discharge Summary - Hospital Course Free Text/Narrative:: Reva is a 21-year-old female at unknown gestational age with known ectopic . Patient was seen in the emergency department in [place] on 11/22/16 and found to have a suspected ectopic with hCG Quant of 700. She was treated with methotrexate at that time. She had presented for abdominal pain and had an ultrasound that showed a right-sided adnexal mass. She re-presented to the [place] emergency department last night on 12/05/16 for increasing abdominal pain and vaginal bleeding. She had an ultrasound done that again showed an adnexal mass but on the left side this time and had increased in size since the previous ultrasound. There was also noted to be free fluid in the cul-de-sac. Her hCG Quant had dropped to 200. She reports that she was scheduled to have surgery this morning but for an unknown reason the surgery was canceled. The patient then traveled to [place] and presented to the emergency department here for a second opinion. She reports that she has continued to have abdominal pain that has ranged from 5 out of 10 currently up to 9 or 10 out of 10. She reports it is in her lower abdomen more on the left side. Describes the pain as a burning sensation. Reports that she has had some chills and fevers. Denies any nausea or vomiting. Reports that she had a near syncopal event when she had her IV placed in [place]. She has not had any near syncopal events since that time. She has been urinating without difficulty. Denies any problems with having bowel movements. She is uncertain of her last menstrual cycle as she reports her LMP as some time in December 2015. She has only had several menstrual cycle since delivery of her son in 2014. She reports that she has had increased vaginal bleeding today that is slightly heavier than a normal menstrual cycle for her. She reports that there is small dark red clots with the bleeding. HPI Initial Comments: Reva is a 21-year-old female at unknown gestational age with known ectopic . Patient was seen in the emergency department in [place] on 11/22/16 and found to have a suspected ectopic with hCG Quant of 700. She was treated with methotrexate at that time. She had presented for abdominal pain and had an ultrasound that showed a right-sided adnexal mass. She re-presented to the [place] emergency department last night on 12/05/16 for increasing abdominal pain and vaginal bleeding. She had an ultrasound done that again showed an adnexal mass but on the left side this time and had increased in size since the previous ultrasound. There was also noted to be free fluid in the cul-de-sac. Her hCG Quant had dropped to 200. She reports that she was scheduled to have surgery this morning but for an unknown reason the surgery was canceled. The patient then traveled to [place] and presented to the emergency department here for a second opinion. She reports that she has continued to have abdominal pain that has ranged from 5 out of 10 currently up to 9 or 10 out of 10. She reports it is in her lower abdomen more on the left side. Describes the pain as a burning sensation. Reports that she has had some chills and fevers. Denies any nausea or vomiting. Reports that she had a near syncopal event when she had her IV placed in [place]. She has not had any near syncopal events since that time. She has been urinating without difficulty. Denies any problems with having bowel movements. She is uncertain of her last menstrual cycle as she reports her LMP as some time in December 2015. She has only had several menstrual cycle since delivery of her son in 2014. She reports that she has had increased vaginal bleeding today that is slightly heavier than a normal menstrual cycle for her. She reports that there is small dark red clots with the bleeding. Brief History: Reva is a 21-year-old female at unknown gestational age with known ectopic . Patient was seen in the emergency department in [place] on 11/22/16 and found to have a suspected ectopic with hCG Quant of 700. She was treated with methotrexate at that time. She had presented for abdominal pain and had an ultrasound that showed a right-sided adnexal mass. She re-presented to the [place] emergency department last night on 12/05/16 for increasing abdominal pain and vaginal bleeding. She had an ultrasound done that again showed an adnexal mass but on the left side this time and had increased in size since the previous ultrasound. There was also noted to be free fluid in the cul-de-sac. Her hCG Quant had dropped to 200. She reports that she was scheduled to have surgery this morning but for an unknown reason the surgery was canceled. The patient then traveled to [place] and presented to the emergency department here for a second opinion. She reports that she has continued to have abdominal pain that has ranged from 5 out of 10 currently up to 9 or 10 out of 10. She reports it is in her lower abdomen more on the left side. Describes the pain as a burning sensation. Reports that she has had some chills and fevers. Denies any nausea or vomiting. Reports that she had a near syncopal event when she had her IV placed in [place]. She has not had any near syncopal events since that time. She has been urinating without difficulty. Denies any problems with having bowel movements. She is uncertain of her last menstrual cycle as she reports her LMP as some time in December 2015. She has only had several menstrual cycle since delivery of her son in 2014. She reports that she has had increased vaginal bleeding today that is slightly heavier than a normal menstrual cycle for her. She reports that there is small dark red clots with the bleeding. - Discharge Data Discharge Date: 12/05/16 Discharge Disposition: Home, Self-Care 01 Condition: Good - Discharge Diagnosis/Problem(s) (1) Ruptured left tubal ectopic causing hemoperitoneum SNOMED Code(s): 41327053 ICD Code: O00.10 - TUBAL WITHOUT INTRAUTERINE ; K66.1 - HEMOPERITONEUM Status: Acute Current Visit: Yes - Patient Summary/Data Operative Procedure(s) Performed: Laparoscopy with left salpingectomy Complications: None Consults: None Labs Pending at D/C: None Hospital Course: Reva is a 21-year-old female at unknown gestational age with known ectopic . Patient was seen in the emergency department in [place] on 11/22/16 and found to have a suspected ectopic with hCG Quant of 700. She was treated with methotrexate at that time. She had presented for abdominal pain and had an ultrasound that showed a right-sided adnexal mass. She re-presented to the [place] emergency department last night on 12/05/16 for increasing abdominal pain and vaginal bleeding. She had an ultrasound done that again showed an adnexal mass but on the left side this time and had increased in size since the previous ultrasound. There was also noted to be free fluid in the cul-de-sac. Her hCG Quant had dropped to 200. She reports that she was scheduled to have surgery this morning but for an unknown reason the surgery was canceled. The patient then traveled to [place] and presented to the emergency department here for a second opinion. She reports that she has continued to have abdominal pain that has ranged from 5 out of 10 currently up to 9 or 10 out of 10. She reports it is in her lower abdomen more on the left side. Describes the pain as a burning sensation. Reports that she has had some chills and fevers. Denies any nausea or vomiting. Reports that she had a near syncopal event when she had her IV placed in [place]. She has not had any near syncopal events since that time. She has been urinating without difficulty. Denies any problems with having bowel movements. She is uncertain of her last menstrual cycle as she reports her LMP as some time in December 2015. She has only had several menstrual cycle since delivery of her son in 2014. She reports that she has had increased vaginal bleeding today that is slightly heavier than a normal menstrual cycle for her. She reports that there is small dark red clots with the bleeding. Patient was taken to the operating room and given general anesthesia. She underwent a laparoscopic left salpingectomy and removal of hemoperitoneum. There were no complications. Patient was taken back to the PACU. She'll be discharged from the PACU once she is meeting all postoperative milestones including ambulating, voiding, and tolerating small amounts of a regular diet. She'll follow up in 2 weeks in the clinic for postop exam. - Patient Instructions Diet: Regular Diet as Tolerated Activity: As Tolerated Driving: Do Not Drive (While taking narcotic pain medications) Showering/Bathing: May Shower Wound/Incision Care: Keep Operative Site/Wound Site Clean and Dry Notify Provider of: Fever, Increased Pain, Swelling and Redness, Drainage, Nausea and/or Vomiting - Discharge Plan Prescriptions/Med Rec: Ibuprofen 600 mg PO Q6HR PRN #60 tablet PRN Reason: Pain Docusate Sodium [Colace] 100 mg PO BID #30 cap Ondansetron HCl [Zofran] 4 mg PO Q4H #30 tablet oxyCODONE HCl/Acetaminophen [Percocet 5-325 mg Tablet] 1 - 2 each PO Q6H #30 tablet Home Medications: Home Meds Docusate Sodium [Colace] 100 mg PO BID #30 cap 12/05/16 [Rx] Ibuprofen 600 mg PO Q6HR PRN #60 tablet 12/05/16 [Rx] Ondansetron HCl [Zofran] 4 mg PO Q4H #30 tablet 12/05/16 [Rx] oxyCODONE HCl/Acetaminophen [Percocet 5-325 mg Tablet] 1 - 2 each PO Q6H #30 tablet 12/05/16 [Rx] Patient Handouts: Ectopic Forms: ED Department Discharge Referrals: PCP,Not In Area [Primary Care Provider] - Casey Woodall MD [Physician] - 12/19/16 (Follow-up in 2-3 weeks in the clinic) - Discharge Summary/Plan Comment DC Time >30 min.: No - Patient Data Vitals - Most Recent: Last Vital Signs Temp 36.6 C 12/05/16 19:14 Pulse 106 H 12/05/16 18:41 Resp 26 H 12/05/16 19:14 BP 119/82 12/05/16 19:14 Pulse Ox 93 L 12/05/16 19:14 Weight - Most Recent: 71.441 kg I&O - Last 24 hours: Intake & Output 12/05/16 12/05/16 12/05/16 06:59 14:59 22:59 Intake Total 3450 Output Total 550 Balance 2900 Lab Results - Last 24 hrs: Laboratory Results - last 24 hr 12/05/16 12/05/16 12/05/16 Range/Units 12:55 12:59 12:59 WBC 13.68 H (3.98-10.04) K/mm3 RBC 4.29 (3.98-5.22) M/mm3 Hgb 12.6 (11.2-15.7) gm/L Hct 38.1 (34.1-44.9) % MCV 88.8 (79.4-94.8) fl MCH 29.4 (25.6-32.2) pg MCHC 33.1 (32.2-35.5) g/dl RDW Std Deviation 42.6 (36.4-46.3) fL Plt Count 309 (182-369) K/mm3 MPV 9.8 (9.4-12.3) fl Neut % (Auto) (34.0-71.1) % Lymph % (Auto) (19.3-51.7) % [place] % (Auto) (4.7-12.5) % Eos % (Auto) (0.7-5.8) Baso % (Auto) (0.1-1.2) % Neut # (Auto) (1.56-6.13) K/mm3 Lymph # (Auto) (1.18-3.74) K/mm3 [place] # (Auto) (0.24-0.36) K/mm3 Eos # (Auto) (0.04-0.36) K/mm3 Baso # (Auto) (0.01-0.08) K/mm3 Neutrophils % (Manual) 85 H (40-60) % Band Neutrophils % 0 (0-10) % Lymphocytes % (Manual) 10 L (20-40) % Atypical Lymphs % 0 % Monocytes % (Manual) 5 (2-10) % Eosinophils % (Manual) 0 L (0.7-5.8) % Basophils % (Manual) 0 L (0.1-1.2) Platelet Estimate Adequate Plt Morphology Comment Normal RBC Morph Comment Normal Sodium 139 (136-145) mEq/L Potassium 3.9 (3.5-5.1) mEq/L Chloride 103 (98-107) mEq/L Carbon Dioxide 26 (21-32) mEq/L Anion Gap 13.9 (5-15) BUN 6 L (7-18) mg/dL Creatinine 0.8 (0.55-1.02) mg/dL Est Cr Clr Drug Dosing TNP Estimated GFR (MDRD) > 60 (>60) mL/min BUN/Creatinine Ratio 7.5 L (14-18) Glucose 123 H (74-106) mg/dL Calcium 9.4 (8.5-10.1) mg/dL Total Bilirubin 0.4 (0.2-1.0) mg/dL AST 15 (15-37) U/L ALT 25 (14-59) U/L Alkaline Phosphatase 111 (46-116) U/L Total Protein 8.4 H (6.4-8.2) g/dl Albumin 3.8 (3.4-5.0) g/dl Globulin 4.6 gm/dL Albumin/Globulin Ratio 0.8 L (1-2) HCG, Quant 87.0 mIU/mL Urine Color Yellow (Yellow) Urine Appearance Clear (Clear) Urine pH 7.0 (5.0-8.0) Ur Specific [place] 1.020 (1.005-1.030) Urine Protein Trace H (Negative) Urine Glucose (UA) Negative (Negative) Urine Ketones Negative (Negative) Urine Occult Blood 3+ H (Negative) Urine Nitrite Negative (Negative) Urine Bilirubin Negative (Negative) Urine Urobilinogen 1.0 (0.2-1.0) Ur Leukocyte Esterase Negative (Negative) Urine RBC 5-10 H (0-5) /hpf Urine WBC 0-5 (0-5) /hpf Ur Epithelial Cells 10-20 H (0-5) /hpf Urine Bacteria Moderate H (FEW) /hpf Urine Mucus Few (FEW) /hpf Blood Type Gel Antibody Screen 12/05/16 12/05/16 Range/Units 12:59 18:42 WBC 14.33 H (3.98-10.04) K/mm3 RBC 3.45 L (3.98-5.22) M/mm3 Hgb 10.2 L (11.2-15.7) gm/L Hct 31.1 L (34.1-44.9) % MCV 90.1 (79.4-94.8) fl MCH 29.6 (25.6-32.2) pg MCHC 32.8 (32.2-35.5) g/dl RDW Std Deviation 42.0 (36.4-46.3) fL Plt Count 244 (182-369) K/mm3 MPV 9.4 (9.4-12.3) fl Neut % (Auto) 83.6 H (34.0-71.1) % Lymph % (Auto) 12.4 L (19.3-51.7) % [place] % (Auto) 3.5 L (4.7-12.5) % Eos % (Auto) 0.1 L (0.7-5.8) Baso % (Auto) 0.1 (0.1-1.2) % Neut # (Auto) 11.98 H (1.56-6.13) K/mm3 Lymph # (Auto) 1.78 (1.18-3.74) K/mm3 [place] # (Auto) 0.50 H (0.24-0.36) K/mm3 Eos # (Auto) 0.02 L (0.04-0.36) K/mm3 Baso # (Auto) 0.01 (0.01-0.08) K/mm3 Neutrophils % (Manual) (40-60) % Band Neutrophils % (0-10) % Lymphocytes % (Manual) (20-40) % Atypical Lymphs % % Monocytes % (Manual) (2-10) % Eosinophils % (Manual) (0.7-5.8) % Basophils % (Manual) (0.1-1.2) Platelet Estimate Plt Morphology Comment RBC Morph Comment Sodium (136-145) mEq/L Potassium (3.5-5.1) mEq/L Chloride (98-107) mEq/L Carbon Dioxide (21-32) mEq/L Anion Gap (5-15) BUN (7-18) mg/dL Creatinine (0.55-1.02) mg/dL Est Cr Clr Drug Dosing Estimated GFR (MDRD) (>60) mL/min BUN/Creatinine Ratio (14-18) Glucose (74-106) mg/dL Calcium (8.5-10.1) mg/dL Total Bilirubin (0.2-1.0) mg/dL AST (15-37) U/L ALT (14-59) U/L Alkaline Phosphatase (46-116) U/L Total Protein (6.4-8.2) g/dl Albumin (3.4-5.0) g/dl Globulin gm/dL Albumin/Globulin Ratio (1-2) HCG, Quant mIU/mL Urine Color (Yellow) Urine Appearance (Clear) Urine pH (5.0-8.0) Ur Specific [place] (1.005-1.030) Urine Protein (Negative) Urine Glucose (UA) (Negative) Urine Ketones (Negative) Urine Occult Blood (Negative) Urine Nitrite (Negative) Urine Bilirubin (Negative) Urine Urobilinogen (0.2-1.0) Ur Leukocyte Esterase (Negative) Urine RBC (0-5) /hpf Urine WBC (0-5) /hpf Ur Epithelial Cells (0-5) /hpf Urine Bacteria (FEW) /hpf Urine Mucus (FEW) /hpf Blood Type A POSITIVE Gel Antibody Screen Negative Med Orders - Current: Current Medications Ephedrine Sulfate (Ephedrine Sulfate) 5 mg IVPUSH ASDIRECTED PRN PRN Reason: Hypotension Fentanyl (Sublimaze) 50 mcg IVPUSH Q5M PRN PRN Reason: Pain Last Admin: 12/05/16 18:56 Dose: 50 mcg Hydromorphone HCl (Dilaudid) 0.5 mg IVPUSH Q15M PRN PRN Reason: severe pain Sodium Chloride (Normal Saline) 1,000 mls @ 150 mls/hr IV ASDIRECTED JUAN Last Admin: 12/05/16 14:42 Dose: 150 mls/hr Metoclopramide HCl (Reglan) 10 mg IVPUSH ONETIME PRN PRN Reason: Nausea/Vomiting Last Admin: 12/05/16 16:50 Dose: 10 mg Sodium Chloride (Saline Flush) 10 ml FLUSH ASDIRECTED PRN PRN Reason: Keep Vein Open Last Admin: 12/05/16 13:05 Dose: 10 ml Discontinued Medications Bupivacaine HCl (Marcaine 0.5%) Confirm Administered Dose 30 ml .ROUTE .STK-MED ONE Stop: 12/05/16 15:55 Last Admin: 12/05/16 17:31 Dose: 16 ml Dexamethasone (Dexamethasone) Confirm Administered Dose 8 mg .ROUTE .STK-MED ONE Stop: 12/05/16 16:35 Diphenhydramine HCl (Benadryl) 25 mg IVPUSH ONETIME ONE Stop: 12/05/16 12:50 Last Admin: 12/05/16 13:08 Dose: 25 mg Ephedrine Sulfate (Ephedrine Sulfate) Confirm Administered Dose 50 mg .ROUTE .STK-MED ONE Stop: 12/05/16 19:15 Famotidine (Pepcid) 20 mg IVPUSH ONETIME ONE Stop: 12/05/16 16:25 Last Admin: 12/05/16 16:44 Dose: 20 mg Fentanyl (Sublimaze) Confirm Administered Dose 250 mcg .ROUTE .STK-MED ONE Stop: 12/05/16 16:36 Glycopyrrolate (Robinul) Confirm Administered Dose 0.2 mg .ROUTE .STK-MED ONE Stop: 12/05/16 19:14 Glycopyrrolate (Robinul) Confirm Administered Dose 0.8 mg .ROUTE .STK-MED ONE Stop: 12/05/16 19:14 Haloperidol Lactate (Haldol) 1 mg IVPUSH ONETIME ONE Stop: 12/05/16 18:07 Hydromorphone HCl (Dilaudid) Confirm Administered Dose 1 mg .ROUTE .STK-MED ONE Stop: 12/05/16 18:32 Sodium Chloride (Normal Saline) 1,000 mls @ 999 mls/hr IV ONETIME ONE Stop: 12/05/16 13:49 Last Admin: 12/05/16 13:00 Dose: 999 mls/hr Lidocaine HCl (Xylocaine-Mpf 1%) Confirm Administered Dose 4 mls @ as directed .ROUTE .STK-MED ONE Stop: 12/05/16 16:35 Hetastarch/Sodium Chloride (Hetastarch 6% In Normal Saline) Confirm Administered Dose 500 mls @ as directed .ROUTE .ST-MED ONE Stop: 12/05/16 19:15 Lactated Ringer's (Ringers, Lactated) Confirm Administered Dose 1,000 mls @ as directed .ROUTE .STK-MED ONE Stop: 12/05/16 19:15 Lactated Ringer's (Ringers, Lactated) Confirm Administered Dose 1,000 mls @ as directed .ROUTE .[facility]-MED ONE Stop: 12/05/16 19:15 Midazolam HCl (Versed 1 Mg/Ml) Confirm Administered Dose 2 mg .ROUTE .STK-MED ONE Stop: 12/05/16 16:36 Neostigmine Methylsulfate (Neostigmine Methylsulfate) Confirm Administered Dose 10 mg .ROUTE .ST-MED ONE Stop: 12/05/16 19:14 Ondansetron HCl (Zofran) 4 mg IVPUSH ONETIME ONE Stop: 12/05/16 12:50 Last Admin: 12/05/16 13:03 Dose: 4 mg Ondansetron HCl (Zofran) Confirm Administered Dose 4 mg .ROUTE .STK-MED ONE Stop: 12/05/16 16:35 Phenylephrine HCl (Kan-Synephrine) Confirm Administered Dose 10 mg .ROUTE .ST- MED ONE Stop: 12/05/16 19:15 Propofol (Diprivan 20 Ml) Confirm Administered Dose 400 mg .ROUTE .STK-MED ONE Stop: 12/05/16 16:36 Rocuronium [place] (Zemuron) Confirm Administered Dose 50 mg .ROUTE .STK-MED ONE Stop: 12/05/16 16:35 Succinylcholine Chloride (Succinylcholine In Ns Pf) Confirm Administered Dose 100 mg .ROUTE .STK-MED ONE Stop: 12/05/16 16:35 *Q Meaningful Use (DIS) - VTE *Q VTE Criteria *Q: - Stroke *Q Stroke Criteria *Q: - AMI *Q AMI Criteria *Q:
[2016-12-05 22:30] VITALS: BP 116/67
== END | disposition home or self-care (01) ==
LOC: JD.ED 11:58 → JD.SDS 14:54
PROVIDERS: ATTEND Obstetrics & Gynecology
DX: O00.10 Tubal pregnancy without intrauterine pregnancy (principal); K66.1 Hemoperitoneum; K58.9 Irritable bowel syndrome, unspecified; Z85.828 Personal history of other malignant neoplasm of skin; Z98.890 Other specified postprocedural states
CPT/HCPCS: 36415; 59151; 80053; 81001; 84702; 85025; 86850; 86900; 86901; 94664; 96361; 96374; 96375; 99285; J0330; J1100; J1200; J2250; J2370; J2405; J2710; J2765; J3010; J3490; J7040; J7050; J7120; 00840; 99284; J1170; J2704